=== PATIENT | male | born 1995 | race Two or more races ===

== ENCOUNTER 2018-02-03 23:53 | Emergency (ER) | payer BC, SELFPAY ==
[2018-02-03 23:54] VITALS: BP 123/80; PULSE 92; RESP 16; TEMP 35.9; O2SAT 94; BMI 20.3
--- NOTE | 2018-02-04 00:47 | ED.DCSUM_ITS ---
- ER Visit Summary Date of Service: 02/04/18 Chief Complaint: Left jaw swelling History of Present Illness: The patient is a 22 M who presents with left jaw swelling. He also complains of a mild pressure or discomfort. He does not have any pain currently. No fevers. No nausea or vomiting. He states that he has a history of a salivary gland infection. He states when he had it last fall he believes he waited too long because his symptoms have become more severe so he wanted to have it checked earlier this time. No exacerbating or relieving factors. Physical Examination: Afebrile vitals are stable Patient has mild left submandibular swelling no overlying erythema or fluctuance no purulent oral discharge no trismus normal dentition Heart regular rate and rhythm Lungs clear Test Results: Not indicated Emergency Department Course and Treatment: Patient has mild left submandibular swelling he has no reproducible tenderness there is no overlying erythema I suspect his symptoms are related to sialolithiasis. I do not currently see evidence of bacterial infection. He was advised on supportive care such as lemon candies or lemon. He understands to return for new or worsening symptoms. All questions answered bedside. He was also given a prescription for naproxen for his discomfort. He was discharged. Treatment Plan: [] Disposition: Discharge Impression: Sialolithiasis This note was generated with [employer] dictation software. It may contain incorrect words, spelling, and punctuation that were not noted in review of the chart prior to signing ED Disposition - Plan for ED Patient: Chief Complaint: Other, Pain/Inj Referrals: NOT,DEFINED [Primary Care Provider] -
--- NOTE | 2018-02-04 00:47 | ED.DEP ---
ED Disposition - Plan for ED Patient: Chief Complaint: Other, Pain/Inj Instructions: ED Sublingual Gland Obstruction Prescriptions: Naproxen [Naprosyn] 500 mg PO BID #20 tab Referrals: NOT,DEFINED [Primary Care Provider] -
--- NOTE | 2018-02-04 00:52 | ED.RN ---
PT GIVEN WRITTEN DISCHARGE INSTRUCTIONS AND HOME GOING PRESCRIPTIONS. PT VERBALIZES UNDERSTANDING AND DENIES ANY FURTHER QUESTIONS. PT AMBULATORY OUT OF DEPT BY SELF.
== END 2018-02-04 00:53 | disposition home or self-care (01) ==
PROVIDERS: Emergency Provider Emergency Medicine
DX: K11.5 Sialolithiasis (principal); Z72.0 Tobacco use
CPT/HCPCS: 99282